=== PATIENT | female | born 1945 | race Caucasian/White ===

== ENCOUNTER 2017-04-24 21:39 | Observation (INO) | payer OTHER ==
[~2017-04-24] VITALS: Ht 160 cm; Wt 78.5 kg
[~2017-04-24 21:39] MED LIST: ASPIR 8181 M1 PO; BIOTIN1 MG PO; CALCIUM/MAGNES1 EACH PO; CARVEDILOL6.25 MG PO; CINNAMON500 MG PO; FISH OIL500 MG PO; GARLIC1000 MG PO; LOSARTAN-HCTZ1 EAC1 PO; METFORMIN HCL1000 MG PO; MILK THISTLE150 MG PO; MOBIC7.5 MG PO; MULTIVITAMIN1 EAC2 PO; NYSTATIN15 GM TP; VITAMIN C500 M1 PO; VITAMIN D33000 UNIT PO; ZANTAC150 MG PO
[2017-04-24 22:33] LABS: HEMATOCRIT 40.7 % (36.0-46.0); MCH 30.5 PG (29.0-34.0); MCHC 33.7 G/DL (30.0-36.0); MCV 90.6 FL (83-99); MEAN PLAT.VOLUME 9.4 uM^3 (9.5-12.4); PLATELET COUNT 280 K/uL (156-360); RBC DIS.WIDTH-CV 12.4 % (11.8-14.6); RBC DIS.WIDTH-SD 41.3 % (39-53); RED BLOOD COUNT 4.49 M/uL (3.80-5.20); WHITE BLOOD COUNT 11.6 K/uL (4.1-10.2)
[2017-04-24 22:44] LABS: CHLORIDE 103 mEq/L (99-109); POTASSIUM 4.2 mEq/L (3.7-5.4); SODIUM 137 mEq/L (136-147)
[2017-04-24 22:46] LABS: GLUCOSE 193 mg/dL (70-99)
[2017-04-24 22:47] LABS: ANION GAP 10 MEQ/L (2-14)
[2017-04-24 22:50] LABS: GFR ESTIMATE (CALCULATED) > 59 mL/min/
[2017-04-24 22:51] LABS: UREA NITROGEN (BUN) 22 mg/dL (9-23)
[2017-04-24 23:00] LABS: TROP-I INTERPRETATION NEGATIVE; TROPONIN-I < 0.01 ng/mL (0.0-0.30)
[2017-04-25] MEDS ORDERED: HEARTBURN PREVE20 MG PO (01:12)
[2017-04-25] MEDS ORDERED: VITAMIN E1000 UNI1 PO (01:13)
[2017-04-25] MEDS ORDERED: VITAMIN B12 100MCG PO (01:15)
[2017-04-25 05:03] VITALS: BP 171/72
[2017-04-25 06:16] LABS: TROP-I INTERPRETATION NEGATIVE; TROPONIN-I < 0.01 ng/mL (0.0-0.30)
[2017-04-25 08:26] LABS: POINT-OF-CARE METER ID UU14162513
[2017-04-25 08:27] VITALS: BP 199/71
[2017-04-25 08:38] VITALS: BP 170/73
[2017-04-25 11:45] VITALS: BP 133/63
[2017-04-25 12:47] LABS: TROP-I INTERPRETATION NEGATIVE; TROPONIN-I < 0.01 ng/mL (0.0-0.30)
[2017-04-25 12:53] LABS: POINT-OF-CARE METER ID UU14162513
[2017-04-25 14:37] LABS: HEMATOCRIT 40.3 % (36.0-46.0); MCH 30.9 PG (29.0-34.0); MCHC 33.5 G/DL (30.0-36.0); MCV 92.2 FL (83-99); MEAN PLAT.VOLUME 9.3 uM^3 (9.5-12.4); PLATELET COUNT 265 K/uL (156-360); RBC DIS.WIDTH-CV 12.5 % (11.8-14.6); RBC DIS.WIDTH-SD 42.5 % (39-53); RED BLOOD COUNT 4.37 M/uL (3.80-5.20); WHITE BLOOD COUNT 10.6 K/uL (4.1-10.2)
[2017-04-25 15:04] LABS: ALKALINE PHOSPHATASE 83 IU/L (3-129); ANION GAP 8 MEQ/L (2-14); CHLORIDE 101 MEQ/L (99-109); GFR ESTIMATE (CALCULATED) > 59 mL/min/; GLUCOSE 185 mg/dL (70-99); LIPASE 32 U/L (1.0-51.0); POTASSIUM 4.3 MEQ/L (3.7-5.4); SAMPLE HEMOLYSIS CHECK 0; SAMPLE ICTERIC CHECK 0; SAMPLE LIPEMIA CHECK 0; SODIUM 136 MEQ/L (136-147); TOTAL BILIRUBIN 0.6 MG/DL (0.0-1.0); UREA NITROGEN (BUN) 17 mg/dL (9-23)
[2017-04-25 16:39] VITALS: BP 125/63
== END 2017-04-25 17:02 | disposition home or self-care (01) ==
LOC: EME 21:39 → ENPENDDIS 04-25 → EDOF 04-25 02:42 → ENRESERV 04-25 02:42 → 5WEST 04-25 04:43
PROVIDERS: Hospitalist
DX: R07.89 Other chest pain (principal); K21.9 Gastro-esophageal reflux disease without esophagitis; E11.9 Type 2 diabetes mellitus without complications; I10 Essential (primary) hypertension; E66.9 Obesity, unspecified; E78.5 Hyperlipidemia, unspecified; Z79.84 Long term (current) use of oral hypoglycemic drugs; Z79.82 Long term (current) use of aspirin; Z91.041 Radiographic dye allergy status
CPT/HCPCS: 71020; 80048; 80053; 82948; 83690; 84484; 85027; 93005; 93306; 99281; 99284; G0378; J1644